=== PATIENT | male | born 1930 | race Caucasian/White ===

== ENCOUNTER 2016-07-16 17:35 | Emergency (ER) | payer MEDICARE, BC ==
[~2016-07-16 17:35] MED LIST: ASPIRIN81 MG PO; ATENOLOL PO; CALCITRIOL0.25 MC1 PO; CATAPRES0.1 MG PO; CLONIDINE HCL0.1 MG; CLONIDINE PO; COUMADIN2.5 MG PO; COUMADIN5 MG PO; DILT-CD180 MG PO; FELDENE20 MG PO; FISH OIL 1,0001 CA2 PO; HUMULIN N100 U/ML SUBQ; HUMULIN N100 UNIT/2 SUBQ; HYDRALAZINE HCL25 MG PO; HYDRALAZINE HCL50 MG PO; HYDROCHLOROTH12.5 M1 PO; ISORDIL10 MG PO; LISINOPRIL5 MG PO; LOPRESSOR PO; METFORMIN PO; NORVASC10 MG PO; PLAVIX PO; PRADAXA75 MG PO; PRAVASTATIN SOD40 MG PO; SUPRAX400 MG PO; VALSARTAN-HCTZ1 EACH PO; ZYLOPRIM100 MG PO
[2016-07-16 18:23] LABS: BASOPHIL# 0.1 X10e3 (0-0.3); BASOPHIL% 1.4 % (0-2.5); EOSINOPHIL# 0.2 X10e3 (0-0.7); EOSINOPHIL% 3.3 % (0.0-7.0); HEMATOCRIT 37.9 % (38.0-50.0); HEMOGLOBIN 12.3 gm/dL (13.0-16.0); LYMPHOCYTE# 1.6 X10e3 (1.0-3.5); MEAN CELL VOLUME 94.7 FL (83-96); MEAN CORPUSCULAR HEMOGLOBIN 30.8 PG (28-34); MEAN CORPUSCULAR HGB CONC 32.5 g/dL (30-36); MEAN PLATELET VOLUME 8.9 FL (6.5-11.5); MONOCYTE# 0.6 X10e3 (0-1.0); MONOCYTE% 8.3 % (3.0-12.0); NEUTROPHIL# 4.6 X10e3 (1.5-7.1); PLATELET COUNT 171 X10e3 (140-420); RED CELL DISTRIBUTION WIDTH 16.8 % (11.0-15.5); WHITE BLOOD COUNT 7.2 X10e3 (4.0-10.5)
[2016-07-16 18:30] LABS: DIFF IND NO
[2016-07-16 18:41] LABS: INR 2.2; PROTHROMBIN TIME (PATIENT) 24.7 SECONDS (9.5-12.4)
[2016-07-16 18:43] LABS: POC - CKMB 2.6 ng/mL (0.0-7.9); POC - TROPONIN <0.05 ng/mL (<=0.05)
[2016-07-16 18:44] LABS: BUN/CREATININE RATIO 19.09; CALCIUM SERUM 9.7 mg/dL (8.4-10.2); CREATININE SERUM 2.2 mg/dL (0.6-1.4); GLOM FILT RATE Estimated 26.7 mL/min (>60); POTASSIUM 4.4 mmol/L (3.5-5.1)
== END 2016-07-16 19:14 | disposition home or self-care (01) ==
LOC: SED 17:35
PROVIDERS: Emergency Medicine
DX: R60.0 Localized edema (principal); N28.9 Disorder of kidney and ureter, unspecified; I10 Essential (primary) hypertension; M10.9 Gout, unspecified; E11.9 Type 2 diabetes mellitus without complications
CPT/HCPCS: 36415; 80048; 82553; 83874; 83880; 84484; 85025; 85610; 96372; 99283; J1940

== ENCOUNTER 2016-12-03 00:43 | Emergency (ER) | payer MEDICARE, BC ==
[2016-12-03 01:41] LABS: BASOPHIL# 0.1 X10e3 (0-0.3); EOSINOPHIL# 0.2 X10e3 (0-0.7); EOSINOPHIL% 2.7 % (0.0-7.0); HEMATOCRIT 32.1 % (38.0-50.0); HEMOGLOBIN 10.4 gm/dL (13.0-16.0); LYMPHOCYTE# 1.4 X10e3 (1.0-3.5); MEAN CELL VOLUME 96.7 FL (83-96); MEAN CORPUSCULAR HEMOGLOBIN 31.4 PG (28-34); MEAN CORPUSCULAR HGB CONC 32.4 g/dL (30-36); MONOCYTE# 0.7 X10e3 (0-1.0); MONOCYTE% 9.4 % (3.0-12.0); NEUTROPHIL# 4.7 X10e3 (1.5-7.1); NEUTROPHIL% 66.9 % (40-75); PLATELET COUNT 205 X10e3 (140-420); RED BLOOD COUNT 3.32 X10e (3.90-5.60); RED CELL DISTRIBUTION WIDTH 16.2 % (11.0-15.5)
[2016-12-03 01:43] LABS: DIFF IND NO
== END 2016-12-03 04:05 | disposition home or self-care (01) ==
LOC: CED 00:43
PROVIDERS: Emergency Medicine
DX: L76.22 Postprocedural hemorrhage of skin and subcutaneous tissue following other procedure (principal); E11.9 Type 2 diabetes mellitus without complications; E78.5 Hyperlipidemia, unspecified; I10 Essential (primary) hypertension; Z79.899 Other long term (current) drug therapy; Z79.01 Long term (current) use of anticoagulants
CPT/HCPCS: 36415; 85025; 99284